=== PATIENT | female | born 1985 | race Caucasian/White ===

== ENCOUNTER → 2020-12-05 | Day surgery (SDC) | payer OTHER | END | disposition home or self-care (01) | LOC: JRADUS 09:28 → EDSTATUS 10:00 → JRADUS-SUR 10:58 | PROVIDERS: ATTEND Obstetrics & Gynecology | PROC: BU08YZZ Plain Radiography of Uterus and Fallopian Tubes using Other Contrast (ICD-10-PCS; principal; 2020-12-05) | DX: N83.202 Unspecified ovarian cyst, left side (principal); N83.201 Unspecified ovarian cyst, right side; D25.9 Leiomyoma of uterus, unspecified | CPT/HCPCS: 58340; 74740-TC-FY; 76831; 84703 ==